=== PATIENT | female | born 1975 ===

== ENCOUNTER 2018-05-13 13:10 | Day surgery (SDC) | payer BC ==
[2018-05-12 15:21] VITALS: BMI 31.9
--- NOTE | 2018-05-13 13:34 | CP.PCM.PN ---
Subjective - Date & Time of Evaluation Date of Evaluation: 05/13/18 Time of Evaluation: 13:31 - Subjective Subjective: Podiatry progress note for attending Dr. Segal: 42 y/o F patient with PMH of Ulcerative colitis seen and evaluated preoperatively for L Radio-frequency application with injection of PRP procedure. She states she has 2 left posterior ankle surgeries this year. Patient states that she has pain in the bottom of her left foot in the first few steps in the morning and also at the surgery site at her Achilles tendon.and that she tried stretching exercises and medications and other conservative measures but it didn't work. She states that she is aware with todays surgery. She confirmed her fasting status. Patient denies any recent N/V/F/SOB/CP. PMH: Ulcerative colitis PSH: 2 L posterior ankle surgeries and one L knee surgery. Surgery for bladder incontinence Allergies: Amoxacilline, clavulonic acid Social Hx: Denies smoking, EtOH user socially. Denies Illicit drug use. Objective - Constitutional Appears: Well, Non-toxic, No Acute Distress - Head Exam Head Exam: ATRAUMATIC, NORMOCEPHALIC - Extremities Exam Additional comments: L LE Focused exam: Vasc: DP and PT pulses 2/4 b/l, cap refill <3 seconds to all digits; temp gradient Warm to cool from proximal to distal. Neuro: gross and protective sensation wnl. Derm: No open lesions or wounds present, Scar of surgery at the posterior aspect of the left ankle with no signs of dehesience or infection Ortho: Pain on palpating the L Achilles tendon. Pain on palpating the Left medial calcaneal tubercle. Muscle power intact 5/5 to all groups. - Neurological Exam Neurological Exam: Alert, Awake, Oriented x3 - Psychiatric Exam Psychiatric exam: Normal Affect, Normal Mood Assessment and Plan - Assessment and Plan (Free Text) Assessment: 42 y/o F seen and evaluated in the SDS preoperatively for L Radio-frequency application with injection of PRP procedure Plan: Pt was seen and examined in SDS Pt NPO status was confirmed All pre-op testing and clearance in chart Pt has exhausted all conservative treatment at this time and is opting for surgical intervention Pt was explained procedure and post-operative course All pt's questions were answered to satisfaction No guarantees were made Pt understands all risks, benefits and complications of procedure Pt will follow-up with within 1 week of surgery
[2018-05-13] MEDS ORDERED: Lidocaine 2% Inj (20ml) INFIL ONE (13:35)
[2018-05-13] MEDS ORDERED: Bupivacaine 0.5% Inj(30mL) IJ ONE (13:35)
[2018-05-13] MEDS ORDERED: ceFAZolin IV 2 gm in Dextrose 2 GM/50 ML BAG IVPB ONE (13:35)
[2018-05-13] MEDS ORDERED: Sodium Chloride 0.9% 1,000 ML IV SCH (13:45)
[2018-05-13] MEDS ORDERED: Lactated Ringer's 1,000 ML IV ONE (13:58)
--- NOTE | 2018-05-13 14:01 | CP.SDSHP ---
Same Day Surgery H & P - History Proposed Procedure: Left foot radiofrequency and PRP injection - Previous Medical/Surgical History Pain: 4.Moderate Pain - Allergies Allergies: Allergies amoxicillin [From Augmentin] Allergy (Verified 05/12/18 15:21) RASH clavulanic acid [From Augmentin] Allergy (Verified 05/12/18 15:21) RASH - Physical Exam Neuro: WNL - {Optional Preform as Required} Integument: WNL - Impression Pt. Evaluated Today:Candidate for Anesthesia & Procedure: Yes - Date & Time Date: 05/13/18 Time: 14:01 Short Stay Discharge - Short Stay Discharge Admitting Diagnosis/Reason for Visit: M72.2, M79.2 Disposition: HOME/ ROUTINE Additional Instructions (Diet, Activity): -Patient in good/stable condition for discharge home -Pt to resume medications per medical reconciliation -Resume regular diet -Please keep dressing clean, dry, & intact to surgical site -Use plastic bag over bandage for showering -Wear post op shoe at all times when ambulating -Call clinic if you see signs of infection (redness, swelling, malodor) -Please make an appointment to see Dr. Segal in office/clinic within 1 week for post-op check Progress Note/Discharge Note with Instructions: - Patient evaluated bedside in recovery - After surgical procedure patient in NAD - (+) Void, (+) Appetite - Capillary refill time <3s and NVS intact. - Patient denies complaints at this time. - Post operative instructions and plan of care explained to patient at length. - Patient. acknowledges verbal understanding. - Patient stable for DC per podiatric surgery
[2018-05-13] MEDS ORDERED: Propofol 10 mg/ml Inj (20 ML) ONE ×5 (16:02→17:36)
[2018-05-13] MEDS ORDERED: Midazolam 2 MG/2 ML VIAL ONE (16:03)
[2018-05-13] MEDS ORDERED: Lidocaine 1% 5ml Abboject ONE (16:03)
[2018-05-13 16:06] LABS: BASO # 0.1 K/uL (0.0-0.2); BASO % 0.7 % (0.0-2.0); BLOOD UREA NITROGEN 11 mg/dl (7-17); CALCIUM 8.6 mg/dL (8.4-10.2); EOS # 0.1 K/uL (0.0-0.7); EOS % 0.8 % (0.0-4.0); GFR NON-AFRICAN AMERICAN > 60; HEMOGLOBIN 13.2 g/dL (12.0-16.0); LYMPH # 2.4 K/uL (1.0-4.3); LYMPH % 20.8 % (20.0-40.0); MEAN CELL VOLUME 90.7 fl (81.0-99.0); MEAN CORPUSCULAR HEMOGLOBIN 29.8 pg (27.0-31.0); MEAN CORPUSCULAR HGB CONC 32.9 g/dL (33.0-37.0); MEAN PLATELET VOLUME 8.3 fl (7.2-11.7); MONO # 0.8 K/uL (0.0-0.8); NEUT # 8.1 K/uL (1.8-7.0); NEUT % 70.7 % (50.0-75.0); RBC 4.41 Mil/uL (3.80-5.20); RED CELL DISTRIBUTION WIDTH 12.9 % (11.5-14.5); WHITE BLOOD COUNT 11.4 K/uL (4.8-10.8)
[2018-05-13] MEDS ORDERED: Bacitracin OINT 15GM TOP ONE (17:40)
[2018-05-13] MEDS ORDERED: Bacitracin Ointment 30 GM TUBE ONE (17:43)
[2018-05-13] MEDS ORDERED: HYDROmorphone 0.5 mg/0.5 ml ISec IVP PRN (17:50)
--- NOTE | 2018-05-13 17:53 | PCM.SURG1 ---
Surgeon's Initial Post Op Note - Surgeon's Notes Surgeon: Dr. Segal, DPM Client Service Representative: Dr. Daniel Perez, PGY1 Type of Anesthesia: IV Sedation, Local Anesthesia Administered By: Dr. Rachel Pre-Operative Diagnosis: Left foot plantar fasciitis, Left foot Achilles tendonitis Operative Findings: see dictation. I: 20 cc 0.5% Marcaine plain. M: 6 cc of platelet rich plasma to left foot Post-Operative Diagnosis: same Operation Performed: Left foot radiofrequency ablation, left foot platelet rich plasma injection Specimen/Specimens Removed: none Estimated Blood Loss: EBL {In ML}: 1 Blood Products Given: N/A Drains Used: No Drains Post-Op Condition: Good Date of Surgery/Procedure: 05/13/18 Time of Surgery/Procedure: 17:55
[2018-05-13] MEDS ORDERED: Lactated Ringer's 1,000 ML IV SCH (18:00)
[2018-05-13 21:17] VITALS: BP 105/57; PULSE 90; RESP 20; TEMP 97.6; O2SAT 98
--- NOTE | 2018-05-18 11:53 | PCM.OP ---
Operative Report - Operative Report Date of Surgery/Procedure: 05/13/18 Time of Surgery/Procedure: 17:00 Surgeon: Dr. Karlee Segal Cord Splicer: Dr. Daniel Perez, PGY1 Anesthesia/Sedation: Dr. Rachel Pre-Operative Diagnosis: Left foot plantar fasciitis with left foot achilles tendonitis Post-Operative Diagnosis: same as above Indication for Surgery: The patient is a 42-year-old female with the above mentioned diagnoses. The patient has exhausted all conservative care including shoe gear modifications, orthosis, and steroid injections. The patient requests surgical intervention at this time. The patient signed the consent after careful explanation of all the risks, benefits, and complications of the proposed surgical procedure. No guarantees have been given or implied. Operative Findings: Preparation: The patient was brought to the operating room and placed on the operating room table in the supine position. After intravenous sedation was achieved, a total of 20 mL of marcaine plain was injected in local block fashion to the patient's left heel. Then the patient was prepped and draped in the usual sterile manner and the procedure began. Procedure/Operation Description: Procedure #1: There were two points marked on the right heel approximately within 1 cm from one another plantarly indicating the most painful areas. Two 22-gauge insulated radiofrequency needles were inserted percutaneously over the marked points to the targeted tissue with impedance ranging from 500 to 600 ohms on the machine. Tips of the needles were used to palpate the targeted tissue and were slightly pulled back. At this time, the radiofrequency electrodes were inserted in the radiofrequency needle. Power on the radiofrequency was then gradually increased for the motor stimulation mode. The foot was then monitored for any signs of fasciculation of the forefoot. Once we were assured that the branch of the nerve identified was not a motor nerve, The radiofrequency unit was set to lesioning mode and lesioning of the nerve was performed at 85 degrees Celsius for 90 seconds. This procedure was repeated for another 3 point to plantar heel in the same manner as mentioned above. Procedure #2: At this time, a total of 6 mL of PRP was injected in the left posterior achilles at the level of the Achilles tendon and to the left heel localized to the area of medial calcaneal tubercle. Then the area was cleansed and dressed with large bandage Post-Operative Condition: The patient tolerated the anesthesia and procedure and proceeded to PACU with vital signs stable and neurovascular status intact to the left lower extremity. Estimated Blood Loss: 1 Blood Replaced: none Complications: none Discharge & Condition: Post-Operative Condition: The patient tolerated the anesthesia and procedure and proceeded to PACU with vital signs stable and neurovascular status intact to the left lower extremity.
== END 2018-05-13 20:30 | disposition home or self-care (01) ==
LOC: H.OPSURG 13:10 → H.PEDS 18:35 → H.OPSURG 20:30
PROVIDERS: ATTEND Podiatrist Foot & Ankle Surgery
DX: M72.2 Plantar fascial fibromatosis (principal); M79.2 Neuralgia and neuritis, unspecified; M19.90 Unspecified osteoarthritis, unspecified site
CPT/HCPCS: 0232T; 36415; 64999; 80048; 85025; 97116; 97161; G0460; G8978; G8979; G8980; J1885; J2250; J2704; J2765; J3010; J7030; J7120